=== PATIENT | male | born 1970 ===

== ENCOUNTER 2016-12-06 17:58 | Emergency (ER) | payer SELFPAY ==
[2016-12-06 18:25] VITALS: PULSE 83; RESP 18; TEMP 98.2; O2SAT 98
--- NOTE | 2016-12-06 19:06 | ED PDOC ---
HPI: CCC, URI, Sore Throat Time Seen by Provider: 12/06/16 18:33 Chief Complaint (Nursing): ENT Problem Chief Complaint (Provider): uri sx History Per: Patient Additional Complaint(s): pt c/o st, cough x 2 days. no congestion, cp, sob, abd pain, n/v. son sick with same. Past Medical History Reviewed: Historical Data, Nursing Documentation, Vital Signs Vital Signs: Last Vital Signs Temp 98.2 F 12/06/16 18:25 Pulse 83 12/06/16 18:25 Resp 18 12/06/16 18:25 BP 136/104 H 12/06/16 18:25 Pulse Ox 98 12/06/16 18:25 - Medical History PMH: HTN (dx in [place], noncompliant with Losartan meds), Hypercholesterolemia - Family History Family History: States: No Known Family Hx - Social History Current smoker - smoking cessation education provided: No Alcohol: None Drugs: Denies - Immunization History Hx Tetanus Toxoid Vaccination: No Hx Influenza Vaccination: No Hx Pneumococcal Vaccination: No - Home Medications Home Medications: Ambulatory Orders Medication Instructions Recorded Ibuprofen [Motrin] 600 mg PO Q6 #20 tab 12/24/15 Methylprednisolone [Medrol Dose 4 mg PO DAILY #21 mg 12/24/15 Pack (21 tabs)] traMADol [Ultram] 50 mg PO Q6H PRN #15 tab 06/30/16 - Allergies Allergies/Adverse Reactions: Allergies Allergy/AdvReac Type Severity Reaction Status Date / Time No Known Allergies Allergy Verified 12/06/16 18:24 Review of Systems ROS Statement: Except As Marked, All Systems Reviewed And Found Negative ENT: Positive for: Throat Pain Respiratory: Positive for: Cough Physical Exam - Reviewed Nursing Documentation Reviewed: Yes Vital Signs Reviewed: Yes - Physical Exam Appears: Positive for: Well, Non-toxic, No Acute Distress Skin: Positive for: Normal Color, Warm, DRY ENT: Positive for: Normal ENT Inspection Neck: Positive for: Normal, Painless ROM Cardiovascular/Chest: Positive for: Regular Rate, Rhythm Respiratory: Positive for: CNT, Normal Breath Sounds Gastrointestinal/Abdominal: Positive for: Normal Exam, Bowel Sounds, Soft. Negative for: Tenderness Neurologic/Psych: Positive for: Alert, Oriented - ECG O2 Sat by Pulse Oximetry: 98 Disposition - Clinical Impression Clinical Impression: URI (upper respiratory infection) - Patient ED Disposition Is Patient to be Admitted: No - Disposition Referrals: [facility] [Outside] Disposition: Routine/Home Disposition Time: 19:06 Condition: GOOD Instructions: Urinary Tract Infection in Men (ED) Forms: [facility] ED School/Work Excuse Print Language: INDONESIAN
[2016-12-06 19:44] VITALS: BP 141/88
== END 2016-12-06 19:43 | disposition home or self-care (01) ==
LOC: H.ER 17:58
DX: J06.9 Acute upper respiratory infection, unspecified (principal); E78.00 Pure hypercholesterolemia, unspecified; I10 Essential (primary) hypertension

== ENCOUNTER 2017-02-03 22:49 | Emergency (ER) | payer SELFPAY ==
[2017-02-03 23:14] VITALS: BP 109/67; PULSE 80; RESP 16; TEMP 98.3; O2SAT 97
--- NOTE | 2017-02-03 23:41 | ED PDOC ---
HPI: Headache Additional Complaint(s): 46yo M with PMHx HTN and HLD c/o headache. c/o occiptal H/A x3 days a/w sore throat and subjective fever. Has not tried anything at home. Denies rhinorrhea, congestion, cough. <Pennie El - Last Filed: 02/04/17 00:30> <Memo Bingham - Last Filed: 02/04/17 00:45> Time Seen by Provider: 02/03/17 23:26 Chief Complaint (Nursing): Headache Supervising Attending Note - Attestation: I have personally seen and examined this patient.: Yes I have fully participated in the care of the patient.: Yes I have reviewed all pertinent clinical information: Yes <Memo Bingham - Last Filed: 02/04/17 00:45> Past Medical History Vital Signs: Last Vital Signs Temp 98.3 F 02/03/17 23:19 Pulse 80 02/03/17 23:19 Resp 16 02/03/17 23:19 BP 109/67 02/03/17 23:19 Pulse Ox 97 02/03/17 23:19 - Medical History PMH: [facility], noncompliant with Losartan meds), Hypercholesterolemia - Family History Family History: States: Hypertension - Social History Ex-Smoker (has not smoked in the last 12 months): Yes Alcohol: None Drugs: Denies - Immunization History Hx Tetanus Toxoid Vaccination: No Hx Influenza Vaccination: No Hx Pneumococcal Vaccination: No <Pennie El - Last Filed: 02/04/17 00:30> Vital Signs: Last Vital Signs Temp 98.3 F 02/03/17 23:19 Pulse 80 02/03/17 23:19 Resp 16 02/03/17 23:19 BP 109/67 02/03/17 23:19 Pulse Ox 97 02/04/17 00:32 <Memo Bingham - Last Filed: 02/04/17 00:45> - Home Medications Home Medications: Ambulatory Orders Medication Instructions Recorded Ibuprofen [Motrin] 600 mg PO Q6 #20 tab 12/24/15 Methylprednisolone [Medrol Dose 4 mg PO DAILY #21 mg 12/24/15 Pack (21 tabs)] traMADol [Ultram] 50 mg PO Q6H PRN #15 tab 06/30/16 Ibuprofen [Motrin Tab] 600 mg PO Q6 #30 tab 02/04/17 - Allergies Allergies/Adverse Reactions: Allergies Allergy/AdvReac Type Severity Reaction Status Date / Time No Known Allergies Allergy Verified 02/03/17 23:19 Review of Systems ROS Statement: Except As Marked, All Systems Reviewed And Found Negative ENT: Positive for: Throat Pain Neurological: Positive for: Headache <Christian - Last Filed: 02/04/17 00:30> Physical Exam - Reviewed Nursing Documentation Reviewed: Yes Vital Signs Reviewed: Yes - Physical Exam Appears: Positive for: Non-toxic, No Acute Distress Head Exam: Positive for: ATRAUMATIC, NORMAL INSPECTION Skin: Positive for: Warm, Dry Eye Exam: Positive for: Normal appearance. Negative for: Scleral icterus ENT: Negative for: Pharyngeal Erythema, Tonsillar Exudate Neck: Positive for: Normal, Supple Cardiovascular/Chest: Positive for: Regular Rate, Rhythm. Negative for: Murmur Respiratory: Positive for: Normal Breath Sounds. Negative for: Crackles Gastrointestinal/Abdominal: Positive for: Soft. Negative for: Tenderness Back: Positive for: Normal Inspection. Negative for: Vertebral Tenderness Extremity: Negative for: Tenderness, Pedal Edema Lymphatic: Positive for: Normal Exam. Negative for: Adenopathy Neurologic/Psych: Positive for: Alert, Oriented <Christian - Last Filed: 02/04/17 00:30> - ECG O2 Sat by Pulse Oximetry: 97 < - Last Filed: 02/04/17 00:30> Medical Decision Making Medical Decision Makin DDx headache, migraine, URI no meningial signs ibuprofen 600mg PO x1 reassessment 0030 H/A improved d/c home <Christian - Last Filed: 02/04/17 00:30> Disposition - Disposition Disposition: Routine/Home Disposition Time: 00:31 <Christian - Last Filed: 02/04/17 00:30> <Memo Bingham - Last Filed: 02/04/17 00:45> - Clinical Impression Clinical Impression: Acute headache - Disposition Referrals: [facility] [Outside] Condition: STABLE Prescriptions: Ibuprofen [Motrin Tab] 600 mg PO Q6 #30 tab Instructions: Acute Headache (ED) Print Language: CUBAN
== END 2017-02-04 00:35 | disposition home or self-care (01) ==
LOC: H.ER 22:49
DX: R21 Rash and other nonspecific skin eruption (principal)